=== PATIENT | female | born 2000 | race Caucasian/White ===

== ENCOUNTER 2021-09-29 11:58 | Emergency (ER) | payer OTHER ==
[~2021-09-29] VITALS: Ht 160 cm; Wt 88.5 kg
[2021-09-29] MEDS ORDERED: PROBIOTIC1 EAC2 PO (12:14)
[2021-09-29] MEDS ORDERED: DIFLUCAN150 MG PO (13:54)
[2021-09-29] MEDS ORDERED: NYSTATIN100000 UNI SW&SWALLOW (13:54)
[2021-09-29 13:59] VITALS: BP 141/70
== END 2021-09-29 14:00 | disposition home or self-care (01) ==
LOC: M.ERS 11:58
DX: B37.0 Candidal stomatitis (principal); Z79.899 Other long term (current) drug therapy